=== PATIENT | male | born 1945 | race Caucasian/White ===

== ENCOUNTER 2017-07-08 18:11 | Emergency (ER) | payer MEDICARE, BC ==
[2017-07-08 18:54] LABS: ADD MAN DIFF? NO
[2017-07-08] MEDS: IV NORMAL SALINE 1000ML BAG 1,000 ML IV ×2 (18:55)
[2017-07-08 19:02] LABS: BASO # 0.1 x10^3/uL (0.0-0.2); BASO % 1 % (0-3); EOS # 0.2 x10^3/uL (0.0-0.7); EOS % 3 % (0-3); HEMATOCRIT 41.4 % (39.0-53.0); HEMOGLOBIN 14.2 g/dL (13.0-17.5); LYMPH # 1.8 x10^3/uL (1.0-4.8); LYMPH % 30 % (24-48); MEAN CORPUSCULAR HEMOGLOBIN 30 pg (25-35); MEAN CORPUSCULAR HGB CONC 34 g/dL (31-37); MEAN CORPUSCULAR VOLUME 87 fL (79-100); MONO # 0.6 x10^3/uL (0.0-1.1); MONO % 9 % (0-9); NEUT # 3.4 x10^3uL (1.8-7.7); NEUT % 56 % (31-73); PLATELET COUNT 174 x10^3/uL (140-400); RED BLOOD COUNT 4.74 x10^6/uL (4.30-5.70); WHITE BLOOD COUNT 6.1 x10^3/uL (4.0-11.0)
[2017-07-08] MEDS: ASPIRIN CHEWABLE 81 MG TABLET. PO ×2 (19:26)
[2017-07-08 19:37] LABS: ANION GAP 13 (6-14); BLOOD UREA NITROGEN 30 mg/dL (8-26); BUN/CREATININE RATIO 30 (6-20); CALCIUM 9.9 mg/dL (8.5-10.1); CARBON DIOXIDE 26 mmol/L (21-32); CHLORIDE 100 mmol/L (98-107); GFR 73.5; GLUCOSE 186 mg/dL (70-99); POTASSIUM 4.1 mmol/L (3.5-5.1); SODIUM 139 mmol/L (136-145)
[2017-07-08 19:40] LABS: ALBUMIN 3.7 g/dL (3.4-5.0); ALBUMIN/GLOBULIN RATIO 0.8 (1.0-1.7); ALK PHOS 114 U/L (46-116); ALT (SGPT) 30 U/L (16-63); AST (SGOT) 36 U/L (15-37); MAGNESIUM 1.8 mg/dL (1.8-2.4); TOTAL BILIRUBIN 0.6 mg/dL (0.2-1.0); TOTAL PROTEIN 8.3 g/dL (6.4-8.2)
[2017-07-08 19:43] LABS: TROPONINI < 0.017 ng/mL (0.000-0.055)
[2017-07-08 19:47] LABS: CKMB INDEX 1.3 % (0-4); CKMB MASS 2.2 ng/mL (0.0-3.6); CREATINE KINASE 164 U/L (39-308)
[2017-07-08 21:50] LABS: TROPONINI < 0.017 ng/mL (0.000-0.055)
[2017-07-08 21:52] LABS: CKMB INDEX 1.3 % (0-4); CKMB MASS 1.6 ng/mL (0.0-3.6); CREATINE KINASE 124 U/L (39-308)
== END 2017-07-08 22:15 | disposition home or self-care (01) ==
LOC: ER 18:11
DX: R07.89 Other chest pain (principal); E11.9 Type 2 diabetes mellitus without complications; E78.00 Pure hypercholesterolemia, unspecified; I10 Essential (primary) hypertension; E78.5 Hyperlipidemia, unspecified; E66.9 Obesity, unspecified; Z68.37 Body mass index [BMI] 37.0-37.9, adult; Z96.659 Presence of unspecified artificial knee joint
CPT/HCPCS: 36415; 71045; 80053; 82553; 83735; 84484; 85025; 93005; 96360; 96361; 99285-25; J7030

== ENCOUNTER 2018-05-15 14:06 | Emergency (ER) | payer MEDICARE, BC ==
[~2018-05-15] VITALS: Ht 182.9 cm; Wt 126.6 kg
[~2018-05-15 14:06] MED LIST: ASPI-482 PO; ATORVASTATIN CA80 MG PO; CHOL10003 PO; GLIP10TA13 PO; HYDR-2145 PO; LOSA100T14 PO; METF10007 PO; METO100T7 PO; OMEG1CAP6 PO
--- NOTE | 2018-05-15 16:07 | RAD ---
EXAM: PA and Lateral Views of the Chest DATE: 05/15/2018 3:05 PM INDICATION: BILATERAL LOWER EXTREMITY SWELLING. COMPARISON: 07/08/2017 FINDINGS: The heart is not enlarged. Mediastinal and hilar contours are normal. No focal parenchymal airspace opacity. No pleural effusion or pneumothorax. Eventration of the right hemidiaphragm. IMPRESSION: 1. No radiographic evidence for acute cardiopulmonary process. Electronically signed by: Diego Moore MD (05/15/2018 4:03 PM) [facility]
--- NOTE | 2018-05-15 16:28 | EKG ---
[facility] [address] [place] [id number] Test Date: 2018-05-15 Test Time: 16:18:23 Pat Name: FITO SPENCER Department: Room: Gender: M [place] Paver Operator: : 1945 Requested By: ALYSHA BUENROSTRO Order Number: [id number] Reading MD: Measurements Intervals [place] Rate: 61 P: 18 VA: 200 QRS: -13 QRSD: 92 T: -8 QT: 394 QTc: 398 Interpretive Statements SINUS RHYTHM LEFTWARD AXIS QRS(T) CONTOUR ABNORMALITY CONSISTENT WITH INFERIOR INFARCT AGE UNDETERMINED ABNORMAL ECG RI6.01 No previous ECG available for comparison
[2018-05-15 16:29] LABS: BASO # 0.1 x10^3/uL (0.0-0.2); BASO % 1 % (0-3); EOS # 0.1 x10^3/uL (0.0-0.7); EOS % 2 % (0-3); HEMATOCRIT 36.4 % (39.0-53.0); HEMOGLOBIN 12.5 g/dL (13.0-17.5); LYMPH # 1.2 x10^3/uL (1.0-4.8); LYMPH % 23 % (24-48); MEAN CORPUSCULAR HEMOGLOBIN 30 pg (25-35); MEAN CORPUSCULAR HGB CONC 34 g/dL (31-37); MEAN CORPUSCULAR VOLUME 88 fL (79-100); MONO # 0.5 x10^3/uL (0.0-1.1); MONO % 10 % (0-9); NEUT # 3.3 x10^3uL (1.8-7.7); NEUT % 64 % (31-73); PLATELET COUNT 162 x10^3/uL (140-400); RED BLOOD COUNT 4.13 x10^6/uL (4.30-5.70); RED CELL DISTRIBUTION WIDTH 15.7 % (11.5-14.5); WHITE BLOOD COUNT 5.1 x10^3/uL (4.0-11.0)
[2018-05-15 16:46] LABS: CALCIUM 9.5 mg/dL (8.5-10.1); GFR 73.2; POTASSIUM 3.9 mmol/L (3.5-5.1)
[2018-05-15 16:52] LABS: ALBUMIN 3.6 g/dL (3.4-5.0); ALBUMIN/GLOBULIN RATIO 0.9 (1.0-1.7); TOTAL BILIRUBIN 0.5 mg/dL (0.2-1.0); TOTAL PROTEIN 7.6 g/dL (6.4-8.2)
[2018-05-15 17:00] VITALS: BP 160/70
--- NOTE | 2018-05-15 17:30 | PHYS DOC ---
Past Medical History Past Medical History: Diabetes-Type II, High Cholesterol Additional Past Medical Histor: COLON TUMOR Past Surgical History: Knee Replacement, Tonsillectomy Additional Past Surgical Histo: COLON SURGERY Alcohol Use: Occasionally Drug Use: None Adult General Chief Complaint Chief Complaint: LOWER EXTREMITY SWELLING [facility] HPI Patient is a 72 year old male who presents with bilateral lower extremity swelling. The patient states that [facility]. He recently saw his primary care provider who wanted to start him on insulin. He states that he did not want to go on insulin so she did agree to give him until July 02 to get his blood sugars down. The patient was also complaining to her that he did not like taking his water pill estimated P2 much throughout the day. He had already cut the pill in half. He states that she told him he could discontinue taking his diuretic. He states that he discontinued his diuretic approximately 3 weeks ago and noticed the swelling yesterday. He denies shortness of breath, nocturia or chest pain. Review of Systems Review of Systems Constitutional: Denies fever or chills [] Eyes: Denies change in visual acuity, redness, or eye pain [] HENT: Denies nasal congestion or sore throat [] Respiratory: Denies cough or shortness of breath [] Cardiovascular: No additional information not addressed in HPI [] GI: Denies abdominal pain, nausea, vomiting, bloody stools or diarrhea [] : Denies dysuria or hematuria [] Musculoskeletal: See history of present illness Integument: Denies rash or skin lesions [] Neurologic: Denies headache, focal weakness or sensory changes [] Endocrine: Denies polyuria or polydipsia [] All other systems were reviewed and found to be within normal limits, except as documented in this note. Allergies Allergies Allergies Coded Allergies Type Severity Reaction Last Updated Verified No Known Drug Allergies 11/03/14 No Physical Exam Physical Exam Constitutional: Well developed, well nourished, no acute distress, non-toxic appearance. [] HENT: Normocephalic, atraumatic, bilateral external ears normal, oropharynx moist, no oral exudates, nose normal. [] Eyes: PERRLA, EOMI, conjunctiva normal, no discharge. [] Neck: Normal range of motion, no tenderness, supple, no stridor. [] Cardiovascular:Heart rate regular rhythm, no murmur [] Lungs & Thorax: Bilateral breath sounds clear to auscultation [] Abdomen: Bowel sounds normal, soft, no tenderness, no masses, no pulsatile masses. [] Skin: Warm, dry, no erythema, no rash. [] Back: No tenderness, no CVA tenderness. [] Extremities: No tenderness, no cyanosis, no clubbing, ROM intact, 2+ pedal edema. [] Neurologic: Alert and oriented X 3, normal motor function, normal sensory function, no focal deficits noted. [] Psychologic: Affect normal, judgement normal, mood normal. [] Current Patient Data Vital Signs Vital Signs Date Time Temp Pulse Resp B/P (MAP) Pulse Ox O2 Delivery O2 Flow Rate FiO2 05/15/18 17:00 61 18 160/70 (100) 98 Room Air 05/15/18 14:45 98.0 98.0 Lab Values Laboratory Tests Test 05/15/18 16:17 White Blood Count 5.1 x10^3/uL (4.0-11.0) Red Blood Count 4.13 x10^6/uL (4.30-5.70) L Hemoglobin 12.5 g/dL (13.0-17.5) L Hematocrit 36.4 % (39.0-53.0) L Mean Corpuscular Volume 88 fL (79-100) Mean Corpuscular Hemoglobin 30 pg (25-35) Mean Corpuscular Hemoglobin Concent 34 g/dL (31-37) Red Cell Distribution Width 15.7 % (11.5-14.5) H Platelet Count 162 x10^3/uL (140-400) Neutrophils (%) (Auto) 64 % (31-73) Lymphocytes (%) (Auto) 23 % (24-48) L Monocytes (%) (Auto) 10 % (0-9) H Eosinophils (%) (Auto) 2 % (0-3) Basophils (%) (Auto) 1 % (0-3) Neutrophils # (Auto) 3.3 x10^3uL (1.8-7.7) Lymphocytes # (Auto) 1.2 x10^3/uL (1.0-4.8) Monocytes # (Auto) 0.5 x10^3/uL (0.0-1.1) Eosinophils # (Auto) 0.1 x10^3/uL (0.0-0.7) Basophils # (Auto) 0.1 x10^3/uL (0.0-0.2) Sodium Level 143 mmol/L (136-145) Potassium Level 3.9 mmol/L (3.5-5.1) Chloride Level 106 mmol/L (98-107) Carbon Dioxide Level 28 mmol/L (21-32) Anion Gap 9 (6-14) Blood Urea Nitrogen 18 mg/dL (8-26) Creatinine 1.0 mg/dL (0.7-1.3) Estimated GFR (Cockcroft-Gault) 73.2 BUN/Creatinine Ratio 18 (6-20) Glucose Level 204 mg/dL (70-99) H Calcium Level 9.5 mg/dL (8.5-10.1) Total Bilirubin 0.5 mg/dL (0.2-1.0) Aspartate Amino Transferase (AST) 11 U/L (15-37) L Alanine Aminotransferase (ALT) 21 U/L (16-63) Alkaline Phosphatase 114 U/L (46-116) NI-Okb-I-Type Natriuretic Peptide 97 pg/mL (0-124) Total Protein 7.6 g/dL (6.4-8.2) Albumin 3.6 g/dL (3.4-5.0) Albumin/Globulin Ratio 0.9 (1.0-1.7) L Laboratory Tests 05/15/18 16:17 Laboratory Tests 05/15/18 16:17 EKG EKG [] Radiology/Procedures Radiology/Procedures []PATIENT: FITO SPENCER DACCOUNT: [id number]#: [id number] : 1945 LOCATION: ER AGE: 72 SEX: M EXAM STATUS: PRE ER ORD. PHYSICIAN: ALYSHA BUENROSTRO APRN REASON: bilateral lower extremity swelling PROCEDURE: CHEST PA & LATERAL EXAM: PA and Lateral Views of the Chest DATE: 05/15/2018 3:05 PM INDICATION: BILATERAL LOWER EXTREMITY SWELLING. COMPARISON: 07/08/2017 FINDINGS: The heart is not enlarged. Mediastinal and hilar contours are normal. No focal parenchymal airspace opacity. No pleural effusion or pneumothorax. Eventration of the right hemidiaphragm. IMPRESSION: 1. No radiographic evidence for acute cardiopulmonary process. Electronically signed by: Diego Plasencia MD (05/15/2018 4:03 PM) [facility] DICTATED and SIGNED BY: DIEGO PLASENCIA MD DATE: 05/15/18 9391 Course & Med Decision Making Course & Med Decision Making Pertinent Labs and Imaging studies reviewed. (See chart for details) []The patient is being encouraged to restart his diuretic. He is to call his primary care provider next week for further instruction. He is in agreement with this plan. Dragon Disclaimer Dragon Disclaimer This electronic medical record was generated, in whole or in part, using a voice recognition dictation system. Departure Departure Impression: Primary Impression: Pedal edema Disposition: 01 HOME, SELF-CARE Condition: STABLE Referrals: DEVANTE NOE MD (PCP) Patient Instructions: Peripheral Edema Additional Instructions: Restart your water pill. Call your primary care provider to see if you can see her earlier than your scheduled appointment. If worsening return to the emergency department. ALYSHA BUENROSTRO APRN May 15, 2018 17:30
== END 2018-05-15 17:32 | disposition home or self-care (01) ==
LOC: ER 14:06
DX: R60.0 Localized edema (principal); E78.00 Pure hypercholesterolemia, unspecified; E11.9 Type 2 diabetes mellitus without complications; Z96.659 Presence of unspecified artificial knee joint; Z98.890 Other specified postprocedural states
CPT/HCPCS: 36415; 71046; 80053; 83880; 85025; 93005; 99284